=== PATIENT | male | born 1985 | race Caucasian/White ===

== ENCOUNTER 2017-02-21 12:54 | Emergency (ER) | payer MEDICAID ==
[~2017-02-21] VITALS: Ht 162.6 cm; Wt 86.0 kg
[2017-02-21 12:58] VITALS: Ht 162.6 cm; Wt 86.0 kg
--- NOTE | 2017-02-21 15:02 | RADRPT ---
PROCEDURE: XR Chest. CLINICAL INDICATION: Chest pain and shortness of breath. TECHNIQUE: Single frontal view. COMPARISON: None. FINDINGS: The lungs are clear. The heart size is normal. There is no pleural effusion. There is no pneumothorax. IMPRESSION: 1. Normal chest radiograph. RPTAT: QQ .Ludwin Etienne MD, MD Date Time Electronically viewed and signed by .Ludwin Etienne MD, MD on 02/21/2017 15:02 .R/
[2017-02-21 15:23] VITALS: BP 132/66; PULSE 68; RESP 18; TEMP 98.1
--- NOTE | 2017-02-21 15:31 | ERD ---
ER Documentation Chief Complaint Date/Time DATE: 02/21/17 TIME: 15:25 Chief Complaint sob, chest pain since sunday hx of anxiety HPI Patient is a 32-year-old male who presents to the ED with chest pressure, shortness of breath, nervousness 3 weeks. He states that his symptoms come and go. He states that he has been very stressed and feeling anxious and panicky. He states that this has happened in the past but he is stressed about money, family and personal life. He is not taking any medication for his symptoms. He denies any suicidal ideation or plan. He denies hallucinations. He has not seen his primary care regarding this issue. He states that the pain is located in his mid chest does not radiate. Denies nausea vomiting or diarrhea. Denies headache or dizziness. Denies leg pain or swelling. Denies cough. Denies passing out or losing consciousness. No heart disease in family. No other complaints. ROS All systems reviewed and are negative except as per history of present illness. PMhx/Soc Medical and Surgical Hx: pt denies Surgical Hx Hx Miscellaneous Medical Probl: Yes (ANXIETY ) Hx Alcohol Use: No Hx Substance Use: No Hx Tobacco Use: No Smoking Status: Never smoker FmHx Family History: No coronary disease, No diabetes, No other Physical Exam Vitals Vital Signs Date Time Temp Pulse Resp B/P Pulse Ox O2 Delivery O2 Flow Rate FiO2 02/21/17 15:23 98.1 68 18 132/66 98 Room Air 02/21/17 12:58 97.8 84 18 136/71 97 Physical Exam GENERAL: Well-developed, well-nourished male. Appears in no acute distress. HEAD: Normocephalic, atraumatic. EYES: Pupils are equally reactive bilaterally. EOMs grossly intact. No conjunctival erythema. ENT: Moist mucous membranes. No uvula deviation. No kissing tonsils. No exudates. NECK: Supple. No lymphadenopathy or thyromegaly. No meningismus. negative kernig. negative brudinski. LUNG: Clear to auscultation bilaterally. No rhonchi, wheezing, rales or coarse breath sounds. Tenderness to sternum. No step-offs or deformities. No erythema or swelling. HEART: Regular rate and rhythm. No murmurs, rubs or gallops. ABDOMEN: No scars, ecchymosis or rashes noted. Soft, nontender, and nondistended. Positive bowel sounds in all four quadrants. No rebound tenderness , no guarding. (-) McBurneys point tenderness. No CVA tenderness. BACK: No midline tenderness. Extremities: Equal pulses bilaterally. No peripheral clubbing, cyanosis or edema. No unilateral leg swelling. NEUROLOGIC: Alert and oriented. Moving all four extremities. 5/5 strength in all extremities. Normal speech. Steady gait. SKIN: Normal color. Warm and dry. No rashes or lesions. Capillary refill < 2 seconds Procedures/MDM ER COURSE: I kept the patient and/or family informed of laboratory and diagnostic imaging results throughout the emergency room course. IMAGING STUDIES EKG performed, read by Dr. Pritchett 64 bpm, normal sinus rhythm, normal axis, no acute ST segment changes, no T wave inversion [place] [id number] Radiology Main Line: [phone] DIAGNOSTIC IMAGING REPORT Patient: CANDE EVANGELISTA : 1985 Age: 32 Sex: M MR #: [id number] DOS: 02/21/17 1429 Ordering MD: ALPA MUELLER PA-C Location: [facility] Room/Bed: PROCEDURE: XR Chest. CLINICAL INDICATION: Chest pain and shortness of breath. TECHNIQUE: Single frontal view. COMPARISON: None. FINDINGS: The lungs are clear. The heart size is normal. There is no pleural effusion. There is no pneumothorax. IMPRESSION: 1. Normal chest radiograph. RPTAT: QQ .Ludwin Etienne MD, MD Date Time Electronically viewed and signed by .Ludwin Etienne MD, MD on 02/21/2017 15:02 .R/ CC: ALPA MUELLER PA-C MEDICAL DECISION MAKING: This is a 32 year old male who presents with chest pressure, nervousness 3 weeks. Vital signs were reviewed. Patient is afebrile. Patient is not hypoxic. Patient is not toxic or ill-appearing. Patient's pain on his chest was reproducible upon examination. His x-ray is read by radiologist is unremarkable. Low suspicion for ACS, PE, AAA, dissection, DVT Low suspicion for pneumonia, PE, pneumothorax, ACS, epiglottitis, obstruction, TB, pertussis, meningitis, sepsis. Low suspicion for cardiac emergency. Patient does not have risk factors and has no cardiac problems in the family. Or heart disease. DISCHARGE: At this time, patient is stable for discharge and outpatient management with no new complaints during the ER course. Patient was sent home with primary care in the area as well as information about stress relief and relaxation.. Patient will be discharged home with instructions to recheck for new or worsening symptoms such as fever, nausea, weakness, LOC and to follow up with primary care in the next 1-2 days. Patient was advised to return to the ER for any new or worsening symptoms. Plan was discussed and patient and/or family understands and agrees. Home instructions were given. Departure Diagnosis: Primary Impression: Chest wall pain Condition: Stable Patient Instructions: Treating Panic Disorder (Panic Attack) with Therapy, [place] to Managing Stress, Stress Relief: Activities, Stress Relief: Relaxation, Stress Relief: A Positive Lifestyle, Chest Wall Pain, Costochondritis Referrals: [facility] Usted se ospina hecho un examen mdico de control que le indica que no est en rm condicin que requiera tratamiento urgente en el Departamento de Emergencia. Un estudio ms profundo y el tratamiento de pace condicin pueden esperar sin ningn riesgo hasta que usted sea atendida/o en el consultorio de pace mdico o rm cl susanna. Es responsabilidad suya arreglar mr ankit para el seguimiento del elean. MANEJO DE CONDICIONES NO URGENTES EN EL FUTURO 1) Si usted tiene un mdico de atencin primaria: Usted debera llamar a pace mdico de atencin primaria antes de venir al departamento de emergencia. Despus de las horas de consultorio, pace doctor o pace asociado/a est disponible por telfono. El mdico o enfermero de reynold en el servicio telefnico puede asesorarle por baldomero medio para atender el problema, o elena contrario se puede programar rm ankit. 2) Si usted no tiene un mdico de atencin primaria: Llame al mdico o clnica de referencia que aparece abajo stacia las horas de consultorio para hacer rm ankit para que le vean. CLINICAS: [place] [id number] [phone] [facility] [phone] [facility] [phone] [address] [facility]. [place] [phone] [facility]. [place] [id number] [phone] [facility]. [phone] [address] Additional Instructions: Call your primary care doctor TOMORROW for an appointment during the next 1-2 days.See the doctor sooner or return here if your condition worsens before your appointment time. ALPA MUELLER PA-C Feb 21, 2017 15:31
== END 2017-02-21 15:23 | disposition home or self-care (01) ==
LOC: FTE 12:54
DX: R07.89 Other chest pain (principal)
CPT/HCPCS: 71010; 93005; Z7502